=== PATIENT | male | born 1995 | race American Indian/Alaskan Native ===

== ENCOUNTER 2019-08-30 05:05 | Emergency (ER) | payer SELFPAY ==
[2019-08-30 05:16] VITALS: BP 120/70
--- NOTE | 2019-08-30 09:56 | Emergency Department Report ---
ED N/V/D HPI - General Chief complaint: Nausea/Vomiting/Diarrhea Stated complaint: VOMITING,FATIGUE Time Seen by Provider: 08/30/19 08:05 Source: patient Mode of arrival: Ambulatory Limitations: No Limitations - History of Present Illness Initial comments: 24-year-old -[place] male presents emerged department complaining of episodes of nausea and vomiting and diarrhea that started earlier this a.m.. States that he went to a water park a couple days ago and symptoms began to develop after his return reports no fevers chills or sweats reports no hemoptysis, no hematemesis, no hematochezia. Reports no chest pain or palpitations. MD complaint: nausea, vomiting, diarrhea -: Gradual Radiation: none Consistency: constant Improves with: none Worsens with: none - Related Data Previous Rx's Medication Instructions Recorded Last Taken Type Hyoscyamine Subl [Levsin Sl 0.125 0.125 mg SL Q4HR PRN #20 tablet 08/30/19 Unknown Rx TAB] Ondansetron [Zofran Odt] 4 mg PO Q8HR #14 tab.rapdis 08/30/19 Unknown Rx ED Review of Systems ROS: Stated complaint: VOMITING,FATIGUE Other details as noted in HPI Comment: All other systems reviewed and negative ED Past Medical Hx - Past Medical History Previous Medical History?: No - Surgical History Past Surgical History?: No - Social History Smoking Status: Never Smoker Substance Use Type: None - Medications Home Medications: Home Medications Medication Instructions Recorded Confirmed Last Taken Type Hyoscyamine Subl [Levsin Sl 0.125 0.125 mg SL Q4HR PRN #20 tablet 08/30/19 Unknown Rx TAB] Ondansetron [Zofran Odt] 4 mg PO Q8HR #14 tab.rapdis 08/30/19 Unknown Rx ED Physical Exam - General Limitations: No Limitations General appearance: alert, in no apparent distress - Head Head exam: Present: atraumatic, normocephalic - Eye Eye exam: Present: normal appearance, PERRL, EOMI Pupils: Present: normal accommodation - ENT ENT exam: Present: normal exam, normal orophraynx, mucous membranes moist, TM's normal bilaterally - Neck Neck exam: Present: normal inspection, full ROM - Respiratory Respiratory exam: Present: normal lung sounds bilaterally. Absent: respiratory distress, wheezes, rales, chest wall tenderness, accessory muscle use - Cardiovascular Cardiovascular Exam: Present: regular rate, normal rhythm. Absent: systolic murmur, diastolic murmur, rubs, gallop - GI/Abdominal GI/Abdominal exam: Present: soft, normal bowel sounds - Rectal Rectal exam: Present: deferred - Extremities Exam Extremities exam: Present: normal inspection - Back Exam Back exam: Present: normal inspection. Absent: CVA tenderness (R), CVA tenderness (L) - Neurological Exam Neurological exam: Present: alert, oriented X3, CN II-XII intact, normal gait. Absent: abnormal gait, motor sensory deficit, reflexes normal - Psychiatric Psychiatric exam: Present: normal affect, normal mood. Absent: anxious, flat affect, manic, suicidal ideation - Skin Skin exam: Present: warm, dry, intact, normal color. Absent: rash, cyanosis, diaphoretic, erythema ED Course Vital Signs 08/30/19 05:13 Temperature 97.5 F L Pulse Rate 65 Respiratory 18 Rate Blood Pressure 120/70 O2 Sat by Pulse 100 Oximetry ED Medical Decision Making - Medical Decision Making Patient presents to the emergency department with nausea, vomiting, diarrhea, differential diagnosis includes possible acute gastroenteritis. Abdominal examination without peritoneal signs. Currently patient is euvolemic without evidence of dehydration. No evidence of surgical abdomen or other acute medical emergency including bowel obstruction, viscus perforation, vascular catastrophe, appendicitis, cholecystitis at this time. Presentation not consistent with other acute emergent causes of vomiting and diarrhea at this time. No indication for abdominal imaging Plan supportive care, oral/IV rehydration, antiemetics and reassess This patient is concerned about COVID-19 and reportedly inquired about testing. Patient does not meet criteria for COVID-19. Doubt pneumonia, sepsis or other serious bacterial infection or acute emergent condition. Is otherwise well- appearing with acceptable vitals and reassuring physical examination and is safe to be discharged home. Patient lacks serious medical comorbidities that would require admission. Patient is nontoxic and although symptomatic otherwise safe to go home. Will provide strict return precautions and instructions on self isolation/quarantine and anticipatory guidance. Critical care attestation.: If time is entered above; I have spent that time in minutes in the direct care of this critically ill patient, excluding procedure time. ED Disposition Clinical Impression: Gastroenteritis Disposition: DC-01 TO HOME OR SELFCARE Is pt being admited?: No Does the pt Need Aspirin: No Condition: Stable Instructions: Acute Nausea and Vomiting (ED), Gastroenteritis (ED) Additional Instructions: Please sure to follow-up with primary care provider for reevaluation in 24 to 36 hours. At this time your reported symptoms and physical examination again of low risk COVID-19. At this present time did not meet criteria for in-house COVID-19 screening and lacks serious medical comorbidities. Prescriptions: Hyoscyamine Subl [Levsin Sl 0.125 TAB] 0.125 mg SL Q4HR PRN #20 tablet PRN Reason: Spasms Ondansetron [Zofran Odt] 4 mg PO Q8HR #14 tab.rapdis Referrals: ALEX QUINTERO MD [Primary Care Provider] - 3-5 Days
== END 2019-08-30 11:55 | disposition home or self-care (01) ==
LOC: ED 05:05
DX: K52.89 Other specified noninfective gastroenteritis and colitis (principal)
CPT/HCPCS: 99282